=== PATIENT | female | born 1985 | race Caucasian/White ===

== ENCOUNTER 2022-01-27 15:03 | Day surgery (SDC) | payer OTHER ==
[2022-01-27 16:07] VITALS: BMI 27.4
[2022-01-27] MEDS ORDERED: hydrALAZINE 20 MG/ML VIAL SLOW IVP PRN (17:17)
== END 2022-01-27 18:20 | disposition home or self-care (01) ==
LOC: CSHLD/OP 15:03
PROVIDERS: ATTEND Obstetrics & Gynecology
DX: O99.891 Other specified diseases and conditions complicating pregnancy (principal); N93.0 Postcoital and contact bleeding; O99.513 Diseases of the respiratory system complicating pregnancy, third trimester; J45.909 Unspecified asthma, uncomplicated; O09.523 Supervision of elderly multigravida, third trimester; Z3A.31 31 weeks gestation of pregnancy; Z79.899 Other long term (current) drug therapy; Z91.018 Allergy to other foods

== ENCOUNTER 2022-03-20 10:13 | Inpatient (IN) | payer OTHER ==
[2022-03-20] MEDS ORDERED: Methylergonovine 0.2 MG/ML VIAL IM PRN ×2 (10:37→22:50)
[2022-03-20] MEDS ORDERED: hydrALAZINE 20 MG/ML VIAL SLOW IVP PRN ×2 (10:37→22:50)
[2022-03-20] MEDS ORDERED: HYDROcodone/Acetaminophen 5/325 mg Tablet PO PRN (10:37)
[2022-03-20] MEDS ORDERED: Promethazine HCl 25 MG/ML VIAL IM PRN ×2 (10:37→12:40)
[2022-03-20] MEDS ORDERED: Lidocaine 1% (PF) 30 ML VIAL SC PRN (10:37)
[2022-03-20] MEDS ORDERED: Carboprost 250 MCG/ML AMP IM PRN (10:37)
[2022-03-20] MEDS ORDERED: Acetaminophen 500 MG TAB PO PRN (10:37)
[2022-03-20] MEDS ORDERED: Butorphanol Tartrate 1 MG/ML VIAL SLOW IVP PRN (10:37)
[2022-03-20] MEDS ORDERED: Diphenoxylate HCl/Atropine Tablet PO PRN ×2 (10:37)
[2022-03-20] MEDS ORDERED: Misoprostol 200 MCG TAB PR PRN (10:37)
[2022-03-20] MEDS ORDERED: Ibuprofen 800 MG TAB PO PRN (10:37)
[2022-03-20] MEDS ORDERED: Ondansetron PF 4 MG/2 ML Vial IVP PRN ×3 (10:37→22:50)
[2022-03-20] MEDS ORDERED: NS w/ Oxytocin 30 units 500 ML IV SCH ×3 (10:45→22:50)
[2022-03-20 11:14] LABS: Hemoglobin 11.5 g/dL (12.0-15.5); Mean Corpuscular HGB CONC 35.3 g/dL (32.0-36.0); Mean Corpuscular Hemoglobin 32.6 pg (27.0-33.0); Mean Corpuscular Volume 92.4 fl (81.6-98.3); Platelet Count 223 10x3/uL (150-450); RBC Distribution Width 13.8 % (11.5-14.5); Red Blood Cell (RBC) Count 3.53 10x6/uL (3.90-5.03); White Blood Cell (WBC) Count 9.6 10x3/uL (3.5-10.5)
[2022-03-20 11:49] LABS: Hep B Surf Ag Non-Reactive S/CO (NonReactive); Syphilis Antibody Nonreactive (Nonreactive); Syphilis Antibody Index 0.06 S/CO (<1.00 Non-Reactive)
[2022-03-20 11:54] LABS: HBSAg Index 0.18 S/CO (0-0.99)
[2022-03-20] MEDS ORDERED: Fentanyl 2 mcg/Bup 0.1% Cadd 100 ML ONE (12:21)
[2022-03-20 12:23] LABS: SARS-CoV-2 NAA Rapid Test Not Detected (NotDetected)
[2022-03-20 12:27] LABS: HIV (1/2) Antibody/Antigen Non-Reactive (NonReactive); HIV 1/2 INDEX 0.11 S/CO (<1.00)
[2022-03-20] MEDS: Lactated Ringer's 1,000 ML IV SCH (12:35)
[2022-03-20] MEDS ORDERED: diphenhydrAMINE 50 MG/ML VIAL IVP PRN (12:40)
[2022-03-20] MEDS ORDERED: Moisturizing Cream (Eucerin) 113 GM JAR TOP PRN (12:40)
[2022-03-20] MEDS ORDERED: Acetaminophen 325 MG TAB PO PRN (12:40)
[2022-03-20] MEDS ORDERED: Naloxone HCl 0.4 mg/ml Vial IVP PRN ×2 (12:40)
[2022-03-20] MEDS ORDERED: ePHEDrine Sulfate 50 MG/10 ML VIAL SLOW IVP PRN (12:40)
[2022-03-20] MEDS ORDERED: Communication Order-Pharmacy FS SCH (12:45)
[2022-03-20] MEDS ORDERED: Fentanyl 2 mcg/Bupivacaine 0.1% Cassette 100 ML EPIDURAL SCH (12:45)
[2022-03-20] MEDS ORDERED: Lactated Ringer's 500 ML IV PRN (12:46)
[2022-03-20 14:57] VITALS: BMI 27.4
[2022-03-20] MEDS ORDERED: diphenhydrAMINE 25 MG CAP PO PRN (22:50)
[2022-03-20] MEDS ORDERED: Preparation H Ointment 28 GM TUBE PR PRN (22:50)
[2022-03-20] MEDS ORDERED: Zolpidem Tartrate 5 MG TAB PO PRN (22:50)
[2022-03-20] MEDS ORDERED: Measles/Mumps/Rubella 10 MCG/0.5 ML VIAL SC ONE (22:50)
[2022-03-20] MEDS ORDERED: Milk Of Magnesia 30 ML UDCUP PO PRN (22:50)
[2022-03-20] MEDS ORDERED: Misoprostol 200 MCG TAB VAG PRN (22:50)
[2022-03-20] MEDS ORDERED: Benzocaine-Menthol 82.5 ML CAN TOP PRN (22:50)
[2022-03-20] MEDS ORDERED: Boostrix 0.5 ML (Tdap) VIAL IM ONE (22:50)
[2022-03-20] MEDS ORDERED: Lanolin Ointment 7 GM TUBE TOP PRN (22:50)
[2022-03-20] MEDS ORDERED: Bisacodyl 10 MG SUPP PR PRN (22:50)
[2022-03-20] MEDS ORDERED: Varicella virus, LIVE 0.5 ML VIAL SC ONE (22:50)
[2022-03-20] MEDS ORDERED: Ibuprofen 800 MG TAB PO SCH (23:15)
[2022-03-20] MEDS ORDERED: Docusate 100 MG CAP PO SCH (23:15)
[2022-03-21] MEDS: HYDROcodone/Acetaminophen 5/325 mg Tablet PO PRN ×6 (00:42→19:56)
[2022-03-21 04:58] LABS: Hemoglobin 9.9 g/dL (12.0-15.5); Mean Corpuscular Volume 91.6 fl (81.6-98.3); Mean Platelet Volume 9.2 fl (7.4-10.4); Platelet Count 203 10x3/uL (150-450); Red Blood Cell (RBC) Count 3.09 10x6/uL (3.90-5.03); White Blood Cell (WBC) Count 10.4 10x3/uL (3.5-10.5)
[2022-03-21] MEDS: Ibuprofen 800 MG TAB PO SCH ×2 (06:03→13:36)
[2022-03-21] MEDS: Lactated Ringer's 1,000 ML IV SCH (06:45)
[2022-03-21] MEDS: Ferrous Sulfate 325 MG TAB PO SCH ×2 (08:31→16:15)
[2022-03-21] MEDS ORDERED: Docusate 100 MG CAP PO SCH (09:00)
[2022-03-21] MEDS ORDERED: Prenatal Vitamin 1 TAB PO SCH (09:00)
[2022-03-21 16:29] VITALS: TEMP 98.3
[2022-03-21 22:01] VITALS: BP 129/77
== END 2022-03-21 20:53 | disposition home or self-care (01) | DRG 807 ==
LOC: CSHLD/OP 10:13 → CSHLD 10:24 → CSHPP 22:25
PROVIDERS: ADMIT Obstetrics & Gynecology; ATTEND Obstetrics & Gynecology
PROC: 10E0XZZ Delivery of Products of Conception, External Approach (ICD-10-PCS; principal; 2022-03-20)
PROC: 0KQM0ZZ Repair Perineum Muscle, Open Approach (ICD-10-PCS; 2022-03-20)
DX: O99.52 Diseases of the respiratory system complicating childbirth (principal); Z37.0 Single live birth; J45.909 Unspecified asthma, uncomplicated; Z3A.39 39 weeks gestation of pregnancy; Z20.822 Contact with and (suspected) exposure to COVID-19; Z91.018 Allergy to other foods; O70.1 Second degree perineal laceration during delivery; O72.1 Other immediate postpartum hemorrhage
CPT/HCPCS: 36415; 51702; 85027; 86780; 86850; 86900; 86901; 87340; 87389; J2210; J2590; J7120; U0002

== ENCOUNTER 2024-05-26 13:12 | Outpatient (CLI) | payer BC | END 2024-05-26 13:13 | disposition home or self-care (01) | LOC: CSHMAMMO 13:12 | PROVIDERS: ATTEND Family Medicine | DX: Z12.31 Encounter for screening mammogram for malignant neoplasm of breast (principal) | CPT/HCPCS: 77063; 77067 ==